=== PATIENT | male | born 1955 | race Caucasian/White ===

== ENCOUNTER → 2017-05-13 | Outpatient (CLI) | payer OTHER ==
[~2017-05-13] MED LIST: IBUP200C17 PO; MULT-65 PO; NAPR550 PO; TRAM50 PO; TRAM50TA PO; Z.0.NO CURRENT MEDS
== END ==
LOC: CPRE 12:02
PROVIDERS: ATTEND Orthopaedic Surgery Sports Medicine
DX: M16.11 Unilateral primary osteoarthritis, right hip (principal)

== ENCOUNTER 2017-05-30 05:25 | Inpatient (IN) | payer OTHER ==
[~2017-05-30] VITALS: Ht 175.3 cm; Wt 86.5 kg
[~2017-05-30 05:25] MED LIST changes: -NAPR550 PO; -TRAM50 PO; -Z.0.NO CURRENT MEDS
[2017-05-30] MEDS ORDERED: CHLORHEXIDINE GLUCONATE 4% SOLN 120 ML BTL TOPICAL SCH (06:00)
[2017-05-30] MEDS ORDERED: DEXAMETHASONE SOD PHOS 20 MG/5 ML VIAL IV SCH (06:00)
[2017-05-30] MEDS ORDERED: VANCOMYCIN 1000 MG/NS 250 ML (for <70 kg) IV SCH ×2 (06:00)
[2017-05-30] MEDS ORDERED: ceFAZolin 2 GM PREMIX 50 ML IV SCH (06:00)
[2017-05-30] MEDS ORDERED: SODIUM CHLORID 0.9% 500 ML IV PRN (06:00)
[2017-05-30] MEDS ORDERED: METOPROLOL TARTRATE 25 MG TAB PO PRN (06:00)
[2017-05-30] MEDS ORDERED: POVIDONE IODINE 7.5% SCRUB 118 ML BOTTLE TOPICAL SCH (06:00)
[2017-05-30] MEDS ORDERED: LACTATED RINGER'S 1000 ML IV PRN (06:00)
[2017-05-30] MEDS ORDERED: CHLORHEXIDINE GLUCONATE 2 % 1 PACK (2 CLOTHS) TOPICAL PRN (06:00)
[2017-05-30] MEDS ORDERED: POVIDONE IODINE 5% (ANTISEPSIS KIT) 4 APPLICATIONS EACH NARE PRN (06:00)
[2017-05-30] MEDS ORDERED: GENTAMICIN SULFATE 80 MG/2 ML VIAL ONE (06:05)
[2017-05-30] MEDS ORDERED: HYDR-3288 PO (06:52)
[2017-05-30] MEDS ORDERED: ASPI1CHW4 CHEW (06:53)
[2017-05-30] MEDS ORDERED: NALOXONE HCL 0.4 MG/ML AMP IV PUSH PRN (07:00)
[2017-05-30] MEDS ORDERED: TRANEXAMIC PERI-ARTICULAR 3,000 MG/NS 100 ML P-ARTICULR SCH ×2 (07:00)
[2017-05-30] MEDS ORDERED: TRANEXAMIC ACID IV SCH (07:00)
[2017-05-30] MEDS ORDERED: SODIUM CHLORIDE 0.9% IV SCH (07:00)
[2017-05-30] MEDS ORDERED: EXPAREL PERI-ARTICULAR INJECTION (TOTAL VOL. 60 ML) P-ARTICULR SCH ×2 (07:00)
[2017-05-30] MEDS ORDERED: ONDANSETRON HCL 4 MG/2 ML VIAL IVP PRN (07:00)
[2017-05-30] MEDS ORDERED: diphenhydrAMINE HCL 50 MG/ML VIAL IV PUSH PRN (07:00)
[2017-05-30] MEDS ORDERED: BISACODYL 10 MG SUPP RECTAL PRN (07:00)
[2017-05-30] MEDS ORDERED: MORPHINE SULFATE 4 MG/ML INJ IV PUSH PRN (07:00)
[2017-05-30] MEDS ORDERED: ZOLPIDEM TARTRATE 5 MG TAB PO PRN (07:00)
[2017-05-30] MEDS ORDERED: Post-op Orders (for Pharmacy) XX ONE (09:06)
[2017-05-30] MEDS ORDERED: DO NOT ADM ANY ANTICOAGULANT DRUGS PRN (09:06)
[2017-05-30] MEDS ORDERED: *MEPERIDINE 25 MG INJ VIAL PERIprocedural Use ONLY ONE (09:18)
--- NOTE | 2017-05-30 09:20 | RADRPT ---
EXAM DATE/TIME: 05/30/2017 07:27 [facility] COMPARISON: FLUOROSCOPY PORTABLE UP TO 1HR, May 30, 2017, 0:00. INDICATIONS : Post-op total right hip arthroplasty. MEDICAL HISTORY : None. SURGICAL HISTORY : None. ENCOUNTER: Initial ACUITY: 1 day PAIN SCORE: Non-responsive. LOCATION: Right Hip. FINDINGS: The patient is post right hip arthroplasty. Orthopedic hardware is in excellent position. The alignme nt is good. CONCLUSION: Uncomplicated right hip arthroplasty. Suhail Pool MD on May 30, 2017 at 9:16 Board Certified Radiologist. This report was verified electronically.
[2017-05-30] MEDS ORDERED: MIDAZOLAM HCL 2 MG/2 ML VIAL ONE (09:21)
[2017-05-30] MEDS: SODIUM CHLOR 0.9% 1000 ML INJ 1,000 ML IV SCH ×2 (09:30→20:00)
[2017-05-30] MEDS ORDERED: *morphine SULFATE 10 MG/ML PERIprocedure ONLY ONE (09:47)
[2017-05-30 11:00] VITALS: BP 165/83; PULSE 75; RESP 18; TEMP 95.6; O2SAT 100
[2017-05-30] MEDS ORDERED: PHENYLEPH/NS 1000 MCG/10 ML SYR IV ONE (12:00)
[2017-05-30] MEDS ORDERED: PROPOFOL 200 MG/20 ML AMP IV ONE (12:00)
[2017-05-30] MEDS ORDERED: ROCURONIUM INJ 50 MG/5 ML SYRINGE IV PUSH ONE (12:00)
[2017-05-30] MEDS ORDERED: LACTATED RINGER'S 1000 ML INJ 1,000 ML IV ONE (12:00)
[2017-05-30] MEDS ORDERED: ONDANSETRON HCL 4 MG/2 ML VIAL IV PUSH ONE (12:00)
[2017-05-30] MEDS ORDERED: LIDOCAINE HCL 1% PF 5 ML SYRINGE OTHER ONE (12:00)
--- NOTE | 2017-05-30 12:27 | RADRPT ---
EXAM DATE/TIME: 05/30/2017 11:46 [facility] COMPARISON: No previous studies available for comparison. INDICATIONS : Post operative right hip. MEDICAL HISTORY : None. SURGICAL HISTORY : None. ENCOUNTER: Initial ACUITY: 1 day PAIN SCORE: Non-responsive. LOCATION: Right hip. FINDINGS: Examination of the right hip was performed with AP Pelvis. Postoperative right total hip placement. N ormal alignment. No complications identified. Moderate to severe osteoarthritis of the left hip. CONCLUSION: 1. Postoperative right hip with normal alignment. Moderate to severe osteoarthritis left hip. Michael Carrion MD on May 30, 2017 at 12:23 Board Certified Radiologist. This report was verified electronically.
--- NOTE | 2017-05-30 12:34 | MP ---
cc: KAYLAH QURESHI M.D. DATE OF SURGERY 05/30/2017 PREOPERATIVE DIAGNOSIS Right hip osteoarthritis. POSTOPERATIVE DIAGNOSIS Right hip osteoarthritis. PROCEDURE Right total hip arthroplasty SURGEON Dr. Kaylah Qureshi PAYABLE REPRESENTATIVE Kaylah Barajas PA-C ANESTHESIA General. ESTIMATED BLOOD LOSS 200 cc. COMPLICATIONS None. IMPLANTS USED DePuy Corail size 12 Press-Fit high offset femoral stem, size 52 solid [place] Gription cup, size 36-mm highly cross-linked polyethylene neutral liner, size 36-mm ceramic head, +1.5 neck. JUSTIFICATION This patient is a 62-year-old male with history of severe osteoarthritis involving the right hip. He has severe disabling pain with standing, walking, ambulation, weightbearing activities and even severe pain at rest. He has failed greater than 3 months of nonoperative conservative to include medication therapy, injections, ambulatory assistive aids, home exercise program, activity modification. The patient is not overweight. X-rays of the right hip revealed severe end-stage osteoarthritis and [id number] joint space narrowing, subchondral sclerosis, subchondral cysts, osteophyte formation with superior subluxation. The patient was counseled as to the risks, benefits and alternatives to a total hip arthroplasty. The risks which were discussed include but are not limited to anesthesia, bleeding, infection, damage to nerves, blood vessels, pain, stiffness, fracture dislocations, leg length discrepancy, blood clots, pulmonary embolism and even . The patient's pain was severe. He favored the benefits over the risks. He did wish to proceed with surgery. PROCEDURE IN DETAIL Written consent was obtained. The patient was identified by name and taken to the operating room, placed supine on the operating room table. General anesthesia was administered as well as 2 grams of IV Ancef and 1 gram of IV vancomycin. The patient was transferred to the [place] table. The right and left feet were placed in the padded traction boots. All bony prominences and pressure points were well padded. The right hip and right lower extremity were prepped and draped using isopropyl alcohol, Hibiclens solution and Chloraprep solution. After a time-out was performed, a longitudinal incision was made over the anterolateral aspect of the right hip. The fascial layer was incised. Dissection was carried over tensor fascia fabiola, underneath the rectus femoris to allow exposure to the anterior hip capsule. A capsulotomy incision was performed. An oscillating saw was used to perform a femoral neck cut. The osteoarthritic femoral head and neck component was removed. A 10 blade scalpel was used to excise the labrum and sequential reaming began at size 47 mm. It was carried through to size 52. Subsequently, a solid [place] Gription cup was implanted in approximately 45 degrees of abduction and 10 degrees of anteversion. There was excellent purchase and fixation. After insertion of the cup, a screw hole eliminator was placed, followed by the neutral liner. The liner was impacted in place and tested for stability. Attention was then turned to the femur where the leg was externally rotated, extended and adducted. The capsule was released off the inner surface of the greater trochanter to allow for elevation and lateralization of the femur. A box-cutting osteotome was used to gain entrance into the intramedullary canal of the femur. This was followed by the canal finder and sequential broaching up to size 12. Calcar planer was used to plane the calcar. Trial head and neck combinations were evaluated and the final components implanted including the size 12 Corail high-offset, DePuy Press-Fit femoral stem. Trial head and neck combinations were evaluated and again the final 1.5 neck and 36-mm ceramic head was placed. With the current implants, the leg could achieve external rotation of 70 degrees and extension all the way to the ground without evidence of anterior instability or impingement. Soft tissue tension felt appropriate and fluoroscopic images showed appropriate implantation of components. The surgical wound was thoroughly irrigated with sterile saline pulse lavage antibiotic impregnated solution. The fascial layer was closed with #1 Vicryl suture, the subcutaneous layer with 2-0 Vicryl suture. The skin was closed with Dermabond. Sterile dressings were applied. The patient tolerated the procedure well with no intraoperative complications noted. Eric Barajas, physician marketing assistant certified, was present during the entire procedure to include patient positioning and the procedure itself. The medical necessity of a physician marketing assistant was indicated in this case due to the complexity of the procedure itself. He assisted with appropriate manipulation of the leg and also retraction of muscle, tendon, bone and neurovascular structures. He assisted with preparation of bone and also with implantation of the prosthetic replacement. MD YOHANA Sunshine/MARIA A /8:51 AM /12:15 PM
[2017-05-30] MEDS: ACETAMINOPHEN/HYDROcodone 325 MG/10 MG TAB PO PRN ×2 (12:37→22:15)
--- NOTE | 2017-05-30 14:20 | PD.CONS ---
HPI Service [facility] Hospitalists Consult Requested By Dr. Valencia Reason for Consult Postoperative medical management Primary Care Physician Isis Ramos MD Diagnoses: History of Present Illness This 68-year-old male patient with past medical history which includes osteoarthritis. Patient denies any other acute or chronic medical illnesses. Patient is status post right total hip arthroplasty today 05/30/[address] Valencia. We have been consulted for assistance in postoperative medical management. Patient at this time resting comfortably in bed with family at bedside. Offers no specific complaints. Patient specifically denies fevers chills nausea vomiting diarrhea constipation shortness of breath or chest pain. Review of Systems Constitutional: DENIES: Fatigue, Fever, Chills Respiratory: DENIES: Cough, Sputum production, Shortness of breath Cardiovascular: DENIES: Chest pain, Palpitations, Dyspnea on Exertion Gastrointestinal: DENIES: Abdominal pain, Constipation, Diarrhea, Nausea, Vomiting Neurologic: DENIES: Headache, Localized weakness, Speech Problems Psychiatric: DENIES: Anxiety, Confusion, Depression Past Family Social History Past Medical History Osteoarthritis Past Surgical History Denies prior surgical intervention Reported Medications Motrin as needed Allergies: Coded Allergies: No Known Allergies (Verified Allergy, Unknown, 05/30/17) Family History Mother at 84 with Alzheimer's dementia Father at 79 had diabetes mellitus and colon cancer Sister secondary to breast cancer Brother has diabetes Social History Patient Sachi lives at home with his works as a lawn maintenance/landscaping Occasional EtOH use Denies tobacco use now and has Occasional marijuana use possibly once a month denies other illicit drug use Physical Exam Vital Signs Vital Signs Date Time Temp Pulse Resp B/P (MAP) Pulse Ox O2 Delivery O2 Flow Rate FiO2 05/30/17 11:00 95.6 75 18 165/83 (110) 100 05/30/17 10:30 71 16 164/81 (108) 96 Room Air 05/30/17 10:00 69 21 157/75 (102) 97 Room Air 05/30/17 09:45 72 16 162/71 (101) 100 Room Air 05/30/17 09:30 77 15 159/76 (103) 100 Nasal Cannula 2 05/30/17 09:12 98.3 82 19 170/86 (114) 99 Nasal Cannula 2 05/30/17 05:58 98.8 64 18 156/86 (109) 100 Physical Exam GENERAL: This is a well-nourished, well-developed patient, in no apparent distress. SKIN: Postoperative dressing dry and intact HEAD: Atraumatic. Normocephalic. No temporal or scalp tenderness. EYES: Extraocular motions intact. No scleral icterus. No injection or drainage. CARDIOVASCULAR: Regular rate and rhythm RESPIRATORY: Clear to auscultation. Breath sounds equal bilaterally. GASTROINTESTINAL: Abdomen soft, non-tender, nondistended. MUSCULOSKELETAL: Extremities without clubbing, cyanosis, or edema. No joint tenderness, effusion, or edema noted. No calf tenderness. Negative Homans sign bilaterally. NEUROLOGICAL: Awake and alert. Motor and sensory grossly within normal limits. Five out of 5 muscle strength in all muscle groups with the exception of right lower extremity which is postop. Normal speech. Imaging Last Impressions Hip and Pelvis X-Ray 05/30/17 0000 Signed Impressions: Service Date/Time: Tuesday, May 30, 2017 11:46 - CONCLUSION: 1. Postoperative right hip with normal alignment. Moderate to severe osteoarthritis left hip. Michael Carrion MD Hip X-Ray 05/30/17 0000 Signed Impressions: Service Date/Time: Tuesday, May 30, 2017 07:27 - CONCLUSION: Uncomplicated right hip arthroplasty. Suhail Pool MD Assessment and Plan Problem List: (1) Primary localized osteoarthrosis, pelvic region and thigh ICD Codes: M16.10 - Unilateral primary osteoarthritis, unspecified hip Plan: Patient is status post right total hip arthroplasty 05/30/[address] Erik Leal as needed for pain Colace twice a day to prevent constipation Intraoperative antibiotics per orthopedic surgery Physical therapy Lupis Luz May 30, 2017 14:19
--- NOTE | 2017-05-30 14:49 | HHI.DCPOC ---
Discharge Care Plan Diagnosis: (1) Primary localized osteoarthrosis, pelvic region and thigh Your Health Problems Are: Difficulty with ADL Goals to Promote Your Health * To prevent worsening of your condition and complications * To maintain your health at the optimal level Directions to Meet Your Goals Take your medications as prescribed Follow your dietary instruction Follow activity as directed Keep your appointments as scheduled Take your immunizations and boosters as scheduled If your symptoms worsen call your PCP, if no PCP go to Urgent Care Center or Emergency Room Smoking is Dangerous to Your Health. Avoid second hand smoke Call the 24-hour hour crisis hotline for domestic abuse at Christopher Barajas May 30, 2017 14:49
--- NOTE | 2017-05-30 14:50 | HHI.FF ---
Face to Face Verification Diagnosis: (1) Primary localized osteoarthrosis, pelvic region and thigh Physical Therapy Gait training, Safety evaluation, Transfer training, bed to chair Hip: Total hip, Protocol: Right Right LE Weight Bearing: WB as tolerated Nursing RN: 3 days/week x 2 weeks Nursing: Cortes teaching, Dressing changes Dressing Changes: Daily dressing change Additional Instructions ok to maintain dressing unless saturated. I have seen patient Ulisses Hope on 05/30/17. My clinical findings support the need for the requested home health care services because: Limited ability to care for self High risk of falls I certify that my clinical findings support that this patient is homebound because: Post-op weakness Unsteady gait/balance Christopher Barajas May 30, 2017 14:50
[2017-05-30 16:00] VITALS: BP 164/84; PULSE 78; RESP 18; TEMP 97.2; O2SAT 97
[2017-05-30 21:29] VITALS: BP 187/92; PULSE 91; RESP 18; TEMP 98.7; O2SAT 99
[2017-05-30 23:25] VITALS: BP 141/69; PULSE 86; RESP 18; TEMP 98.8; O2SAT 97
[2017-05-31 04:57] VITALS: BP 163/78; PULSE 84; RESP 18; TEMP 96.9; O2SAT 99
[2017-05-31] MEDS: SODIUM CHLOR 0.9% 1000 ML INJ 1,000 ML IV SCH (05:28)
[2017-05-31] MEDS: ACETAMINOPHEN/HYDROcodone 325 MG/10 MG TAB PO PRN ×2 (06:20→12:11)
[2017-05-31 07:13] LABS: HEMATOCRIT 37.8 % (39.0-51.0); HEMOGLOBIN 13.1 GM/DL (13.0-17.0); MEAN CELL VOLUME 88.4 FL (80.0-100.0); MEAN CORPUSCULAR HEMOGLOBIN 30.6 PG (27.0-34.0); MEAN CORPUSCULAR HGB CONC 34.6 % (32.0-36.0); MEAN PLATELET VOLUME 8.8 FL (7.0-11.0); PLATELET COUNT 199 TH/MM3 (150-450); RED BLOOD COUNT 4.28 MIL/MM3 (4.50-5.90); RED CELL DISTRIBUTION WIDTH 13.5 % (11.6-17.2); WHITE BLOOD COUNT 14.2 TH/MM3 (4.0-11.0)
[2017-05-31 07:38] LABS: BICARBONATE 25.7 MEQ/L (21.0-32.0); CALCIUM 8.1 MG/DL (8.5-10.1); CREATININE 0.74 MG/DL (0.60-1.30)
[2017-05-31 08:00] VITALS: BP 162/82; PULSE 80; RESP 18; TEMP 97.9; O2SAT 99
[2017-05-31] MEDS ORDERED: ENOXAPARIN SODIUM 40 MG/0.4 ML SYRINGE SQ SCH (08:00)
--- NOTE | 2017-05-31 08:45 | PD.ORT.PN ---
Subjective Post Op Day #: 1 Subjective Remarks pain controlled. doing well. walked yesterday in hallway. Objective Vitals Vital Signs Date Time Temp Pulse Resp B/P (MAP) Pulse Ox O2 Delivery O2 Flow Rate FiO2 05/31/17 08:35 18 05/31/17 08:00 97.9 80 18 162/82 (108) 99 05/31/17 04:57 96.9 84 18 163/78 (106) 99 05/30/17 23:25 98.8 86 18 141/69 (93) 97 05/30/17 21:29 98.7 91 18 187/92 (123) 99 05/30/17 16:00 97.2 78 18 164/84 (110) 97 05/30/17 11:00 95.6 75 18 165/83 (110) 100 05/30/17 10:30 71 16 164/81 (108) 96 Room Air 05/30/17 10:00 69 21 157/75 (102) 97 Room Air 05/30/17 09:45 72 16 162/71 (101) 100 Room Air 05/30/17 09:30 77 15 159/76 (103) 100 Nasal Cannula 2 05/30/17 09:12 98.3 82 19 170/86 (114) 99 Nasal Cannula 2 I/O 05/30/17 05/30/17 05/30/17 05/31/17 05/31/17 05/31/17 07:00 15:00 23:00 07:00 15:00 23:00 Intake Total 1680 ml 480 ml 580 ml Output Total 750 ml 225 ml Balance 930 ml 255 ml 580 ml Intake Oral 480 ml 480 ml 480 ml IV Total 1200 ml 100 ml Output Urine Total 550 ml 225 ml Estimated Blood Loss 200 ml # Voids 2 3 # Bowel Movements 0 0 0 Result Diagram: 05/31/17 0558 05/31/17 0558 Objective Remarks in chair, nad, brother in room dressing c/d/i thigh soft neg homans nvi Assessment & Plan Ortho Post Op Day #: 1 Problem List: Assessment and Plan s/p R CORRINA wbat ok to maintain dressing unless saturated lovenox, d/c on [id number] rx in chart f/up 2 weeks d/c planing home with [facility] and pt - cleared today Christopher Barajas May 31, 2017 08:45
[2017-05-31 11:46] VITALS: BP 162/80; PULSE 82; RESP 17; TEMP 98.5; O2SAT 98
[2017-05-31 13:11] VITALS: RESP 18
[2017-05-31] MEDS ORDERED: MULTIVITAMINS/MINERALS THERAPEUTIC TAB PO SCH (21:00)
[2017-05-31] MEDS ORDERED: DOCUSATE SODIUM 100 MG CAP PO SCH (21:00)
--- NOTE | 2017-06-02 10:25 | MD ---
cc: KAYLAH QURESHI M.D. ADMISSION DATE: 05/30/2017 DISCHARGE DATE: 05/31/2017 ADMISSION DIAGNOSIS Severe degenerative osteoarthritis right hip. DISCHARGE DIAGNOSIS Severe degenerative osteoarthritis right hip. HISTORY OF PRESENT ILLNESS Mr. Hope was a 62-year-old male who presented to the [facility] for evaluation by Dr. Kaylah Qureshi regarding progressive and severe right hip pain. The patient states the pain is inhibiting his ability to work. He does work as a mails supervisor. He notes it is aggravated by weightbearing activities and he has no alleviating factors at this point in time, although he has tried medications, assistive devices, physical therapy and home exercises without relief of symptoms. He does have x-ray evidence of severe degenerative osteoarthritis of the right hip. While in the office, the patient was counseled on the diagnosis and treatment options. The risks, benefits, and indications were all discussed. The patient did elect to proceed with surgical intervention to include a right total hip arthroplasty. Date of surgery 05/30/2017, right total hip arthroplasty anterior approach. Postop after surgery, the patient admitted to [facility] where he received appropriate management, pain control, DVT prophylaxis, as well as physical therapy. Discharge. Once being discharged from the hospital, the patient is cleared to go home where he will received home health care and home physical therapy. He is in stable condition. He may weight-bear as tolerated. He has been instructed on appropriate wound care management. Patient has been provided prescriptions for pain control as well as DVT prophylaxis and medication. He has also been provided a follow-up appointment in approximately two weeks from the date of surgery. The patient has asked appropriate questions which have been answered. The patient has been discharged. Thank you. Dictated by Kaylah Barajas PA-C MD YOHANA Sunshine/MARGE /7:51 AM /10:13 AM
== END 2017-05-31 13:58 | disposition home health service (06) | DRG 470 ==
LOC: HSDI 05:25 → N06B 10:58
PROVIDERS: ADMIT Orthopaedic Surgery Sports Medicine; ATTEND Orthopaedic Surgery Sports Medicine
PROC: 0SR904A Replacement of Right Hip Joint with Ceramic on Polyethylene Synthetic Substitute, Uncemented, Open Approach (ICD-10-PCS; principal; 2017-05-30 06:48)
DX: M16.11 Unilateral primary osteoarthritis, right hip (principal); F12.90 Cannabis use, unspecified, uncomplicated
CPT/HCPCS: 73502; 76000; 80048; 85027; 86850; 86900; 86901; 94150; C1776; C9290; J0690; J1100; J1580; J1650; J2175; J2250; J2270; J2370; J2405; J3010; J3370; J7030; J7050; J7120

== ENCOUNTER 2018-03-27 05:30 | Inpatient (IN) ==
[2018-03-27] MEDS ORDERED: Dexamethasone Inj 20 MG/5 ML Vial IV.PUSH SCH (05:51)
[2018-03-27] MEDS ORDERED: Sodium Chlor 0.9% Inj 40 ML, Bupivacaine Liposo PF 1.3% Inj 20 ML P-ARTICULR SCH ×2 (05:51)
[2018-03-27] MEDS ORDERED: Chlorhexidine 4% Topical 120 APPLIC/120 ML Bottle TOPICAL SCH (06:00)
[2018-03-27] MEDS ORDERED: Vancomycin Inj 1,000 MG in Sodium Chlor 0.9% Inj 250 ML IV.SIG SCH (06:00)
[2018-03-27] MEDS ORDERED: Tranexamic Acid Inj 1,300 MG in Sodium Chlor 0.9% Inj 100 ML IV.SIG SCH (06:00)
[2018-03-27] MEDS ORDERED: Metoprolol Tartrate 25 MG Tablet PO ONE (06:00)
[2018-03-27] MEDS ORDERED: Sodium Chlor 0.9% Inj 500 ML IV.CONT ONE (06:00)
[2018-03-27] MEDS ORDERED: Chlorhexidine Gluconate 2% 1 Pack (2 Cloths) TOPICAL ONE (06:00)
[2018-03-27] MEDS ORDERED: ceFAZolin 2 GM Premix Inj 2 GM/50 ML PIGGYBACK IV.SIG SCH (06:00)
[2018-03-27] MEDS ORDERED: Tranexamic Acid Inj 3,000 MG in Sodium Chlor 0.9% Inj 100 ML P-ARTICULR SCH (06:00)
[2018-03-27] MEDS ORDERED: Bisacodyl 10 MG Supp RECTAL PRN (06:53)
[2018-03-27] MEDS ORDERED: Zolpidem Tartrate 5 MG Tablet PO PRN (06:53)
[2018-03-27] MEDS ORDERED: HYDROmorphone PF Inj 1 MG/ML Ampul IV.PUSH PRN (06:53)
[2018-03-27] MEDS ORDERED: Post-op Orders (for Pharmacy) OTHER STA (06:53)
--- NOTE | 2018-03-27 08:28 | P.OP ---
Procedure: PREOPERATIVE DIAGNOSIS: Left hip osteoarthritis. POSTOPERATIVE DIAGNOSIS: Left hip osteoarthritis. PROCEDURE PERFORMED: Left total hip arthroplasty. SURGEON: Dr. Christopher Delcid M.D. PRODUCT STEWARD: SEBASTIÁN Bob. ANESTHESIA: General. ESTIMATED BLOOD LOSS: 250 mL. COMPLICATIONS: None. IMPLANTS USED: Depuy Corail femoral stem 14 standard offset [place] Gripsion Cup 52 Poly insert liner neutral [36 by 52] femoral head [36 ceramic) neck length [8.5] JUSTIFICATION: This patient presents to the undersigned at the orthopedic clinic with chief complaints of severe left hip pain. The pain is severe and constant and interferes with activities of daily living. The patient has failed greater than 3 months of nonoperative conservative treatment to include analgesic and nonsteroidal anti-inflammatory medications, physical therapy, cortisone injections, activity modification, weight loss, home exercise program, and use of ambulatory assistive aids. X-rays of left hip reveal severe osteoarthritis with [id number]-[id number] joint space narrowing, subchondral sclerosis, subchondral cysts, osteophyte formation with subluxation. The patient was counseled on risks, benefits, and alternatives to a total hip arthroplasty. The risks were discussed, which include, but are not limited to, anesthesia, bleeding, infection, damage to nerves and blood vessels , pain, stiffness, fracture, dislocations, leg length discrepancy, failure of components, blood clots, pulmonary embolus, and even . The patient favored the benefits over the risks, did wish to proceed with surgery. PROCEDURE IN DETAIL: Written consent was obtained. The patient was identified by name, taken to the operating room and placed supine on the operating table. General anesthesia was administered. The patient was preoperative IV antibiotics. The patient right and left feet were placed in the padded traction boots. The left hip and lower extremity was then prepped and draped using isopropyl alcohol, Hibiclens solution and ChloraPrep solution. After a timeout was performed, a longitudinal incision was made over the anterior aspect of the left hip. The fascia fabiola was incised. Dissection was carried over the tensor fascia fabiola beneath the rectus femoris. After exposure of the anterior capsule, a capsulotomy incision was performed. An oscillating saw was used to perform a femoral neck cut. The Osteoarthritic femoral head and neck was removed. A 10 blade scalpel was used to excise the labrum. Sequential reaming of the acetabulum was performed. Subsequently a porous-coated titanium acetabular cup was implanted in a press manner in approximately 45 degrees of abduction and 10 degrees of anteversion. There was good purchase and fixation after insertion of the acetabular cup. The cup was tested manually and noted to have excellent stability and fixation. A neutral highly cross-linked polyethylene liner was placed within the cup. The liner was impacted in place for fixation and tested for stability. Attention was turned to the femur where the leg was externally rotated, extended and adducted. The capsule was released off the undersurface of the greater trochanter to allow for elevation and lateralization of the femur. A box cutting osteotome was used to gain entrance into the intramedullary canal of the femur. This was followed by a canal finder and sequential broaching. A calcar planer to plane the calcar. A trial head and neck combination were evaluated prior to implantation of final components. With the final implants placed, the leg could achieve external rotation of 70 degrees and extension to the the ground without evidence of anterior instability or impingement. Soft tissue tension felt appropriate. Fluoroscopic imaging showed appropriate implantation of components. The Surgical wound was thoroughly irrigated with sterile saline Pulse Lavage antibiotic impregnated solution. The fascial layer was closed with #1 Vicryl suture, subcutaneous layer with 2-0 Vicryl sutures. The skin was closed with Dermabond. Sterile dressing applied. No intraoperative complications noted. Eric Barajas, Physician Bindery Machine Operator, Certified was present for the entire procedure to include the patient position, the procedure itself. The medical necessity of a physician plumber assistant was indicated in this case due to the complexity of the procedure. He assisted with position of the patient along with the ear itself. During the procedure he assisted with exposure and the retraction of muscle, tendon, bone, and neurovascular vessel structures. He assisted with the preparation of bone and also implantation of the prosthetic replacement. There was a surgical attendant in the room that assisted with management of instruments, but was not available to assist with the surgery itself. Christopher Valencia MD Surgeon: Christopher Valencia MD
[2018-03-27] MEDS ORDERED: *morphine SULFATE 4 MG/ML PERIprocedure ONLY ONE ×3 (08:53→09:22)
[2018-03-27] MEDS ORDERED: fentaNYL Citrate Inj 100 MCG/2 ML Ampul ONE (08:57)
[2018-03-27] MEDS ORDERED: HYDROmorphone PF Inj 0.5 MG/0.5 ML Syringe ONE (09:34)
--- NOTE | 2018-03-27 09:42 | XR ---
EXAM DATE: 03/27/2018 9:31 AM EST AGE/SEX: 62 years / Male INDICATIONS: Post operative left hip. CLINICAL DATA: This is the patient's initial encounter. Patient reports that signs and symptoms have been present for 1 day and indicates a pain score of 0/10. MEDICAL/SURGICAL HISTORY: None. . Total right hip. COMPARISON: [facility] [place] RIGHT (AP&LAT 2/3VWS) W AP PELVIS, 05/30/2017. . FINDINGS: Bilateral hip replacements are noted with prostheses in good position. No acute fracture or dislocati on is noted. Degenerative changes are noted involving the lower lumbar spine. CONCLUSION: 1. No acute fracture or dislocation. 2. Degenerative changes involving the lower lumbar spine. Electronically signed by: Storm Mcnamara MD Board Certified Radiologist 03/27/2018 9:40 AM EST
[2018-03-27] MEDS: ceFAZolin 2 GM Premix Inj 2 GM/50 ML PIGGYBACK IV.SIG SCH ×2 (14:43→18:00)
[2018-03-27] MEDS: Senna/Docusate Sodium 8.6/50 MG Tablet PO SCH ×2 (15:26→20:07)
[2018-03-27] MEDS: Multivitamin/Minerals Therapeutic Tablet PO SCH ×2 (15:26→20:07)
--- NOTE | 2018-03-27 17:15 | XR ---
EXAM DATE: 03/27/2018 10:48 AM EST AGE/SEX: 62 years / Male INDICATIONS: Left total hip arthroplasty. CLINICAL DATA: This is the patient's initial encounter. Patient reports that signs and symptoms have been present for 1 day and indicates a pain score of Nonresponsive. MEDICAL/SURGICAL HISTORY: Non-responsive. Non-responsive. COMPARISON: No prior exams available for comparison. CONCLUSION: Fluoroscopic images during left hip arthroplasty. Electronically signed by: Facundo Faustin MD Board Certified Radiologist 03/27/2018 5:14 PM EST
[2018-03-28] MEDS: ceFAZolin 2 GM Premix Inj 2 GM/50 ML PIGGYBACK IV.SIG SCH (00:40)
[2018-03-28 07:02] LABS: Hematocrit 37.4 % (39.0-51.0); Hemoglobin 12.5 gm/dL (13.0-17.0)
--- NOTE | 2018-03-28 08:13 | P.PNOP ---
Subjective Interval history: doing well. Physical Exam Vital signs: Vital Signs 03/27/18 08:48 03/27/18 09:00 03/27/18 09:15 Temperature 96.5 F L Pulse Rate 67 61 68 Respiratory Rate 22 16 18 Blood Pressure 163/103 H 143/68 H 180/86 H Pulse Oximetry 100 100 100 03/27/18 09:27 03/27/18 09:30 03/27/18 09:45 Temperature Pulse Rate 61 65 62 Respiratory Rate 13 14 15 Blood Pressure 173/82 H 170/82 H 151/76 H Pulse Oximetry 100 100 100 03/27/18 10:00 03/27/18 11:00 03/27/18 15:57 Temperature 97.8 F 98.6 F 98.2 F Pulse Rate 66 76 64 Respiratory Rate 16 14 20 Blood Pressure 144/77 H 160/80 H 156/76 H Pulse Oximetry 98 97 97 03/27/18 19:55 03/27/18 20:00 03/27/18 21:11 Temperature 98.1 F Pulse Rate 68 Respiratory Rate 18 18 18 Blood Pressure 171/80 H Pulse Oximetry 98 03/28/18 00:00 03/28/18 02:50 03/28/18 04:00 Temperature 97.8 F 97.8 F 98.9 F Pulse Rate 67 73 66 Respiratory Rate 18 18 Blood Pressure 176/85 H 155/76 H 156/76 H Pulse Oximetry 98 99 99 03/28/18 06:49 Temperature Pulse Rate Respiratory Rate 18 Blood Pressure Pulse Oximetry Intake & Output 03/27/18 03/28/18 03/28/18 18:59 06:59 18:59 Intake Total 1705 / 1705 599 / 599 Output Total 1000 / 1000 450 / 450 Balance 705 / 705 149 / 149 Weight 86.6 kg 86.1 kg Intake: IV 528 / 528 100 / 100 LR 1000 mL Inj 1,000 ML @ 80 65 / 65 mls/hr IV.CONT .[id number] S[facility] Rx# :[id number] Cyklokapron Inj 1,300 MG In NS 113 / 113 Inj 100 ML @ 200 mls/hr IV.SIG ONCE [facility] Rx#:[id number] Vancomycin Inj 1,000 MG In NS 250 / 250 Inj 250 ML @ 250 mls/hr 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 Hip X-Ray 03/27/18 06:52 CONCLUSION: 1. No acute fracture or dislocation. 2. Degenerative changes involving the lower lumbar spine. Assessment and Plan - Ortho Post Op Day # 1 - Assessment and Plan s/p L CORRINA wbat maintain dressing asa 81 d/c planning home with [facility] and pt cleared today f/up dr. chapin 2 weeks
--- NOTE | 2018-03-28 08:16 | P.DCO ---
- Physical Therapy Physical Therapy: Gait training, Safety evaluation, Transfer training, bed to chair Hip: Total hip, Protocol: Left Left Lower Extremity Weight Bearing: Weight bearing as tolerated - Nursing RN days per week: 1 Nursing: Dressing changes Dressing changes: Daily dressing change - Certification Need for Home Health services: I have seen patient Ulisses Hope on 03/28/18. My clinical findings support the need for the requested home health care services because: Need for Home Health Services: Limited ability to care for self, High risk of falls Homebound Certification: I certify that my clinical findings support that this patient is homebound because: Homebound Certification: Post-op weakness, Unsteady gait/balance
[2018-03-28] MEDS: Multivitamin/Minerals Therapeutic Tablet PO SCH (09:27)
[2018-03-28] MEDS: Senna/Docusate Sodium 8.6/50 MG Tablet PO SCH (09:27)
--- NOTE | 2018-03-30 10:30 | MD ---
cc: Christopher Valencia MD DATE OF DISCHARGE: 03/28/2018 ADMITTING DIAGNOSIS: Severe degenerative osteoarthritis, left hip. DISCHARGE DIAGNOSIS: Severe degenerative osteoarthritis, left hip. HISTORY OF PRESENT ILLNESS: Mr. Hope is a 62-year-old male who is a patient of Dr[facility]. Currently, he is being treated for severe and progressive left hip pain. The patient has a severe aching sensation with weightbearing activities. He has no alleviating factors, although he has tried medications, assistive devices, physical therapy, and home exercise program. The patient is not overweight. The patient has x-ray evidence of severe degenerative osteoarthritis of the left hip. He has a history of a well-functioning right total hip arthroplasty. While in the office, the patient was counseled on his diagnosis and treatment options. Risks, benefits, and indications were all discussed. The patient did elect to proceed with surgical intervention to include a left total hip arthroplasty. DATE OF SURGERY: 03/27/2018. PROCEDURE: Left total hip arthroplasty, anterior approach. POSTOPERATIVE: After surgery, the patient was admitted to [facility] where he received appropriate medical management, pain control, DVT prophylaxis, as well as physical therapy. DISCHARGE: Once being discharged from the hospital, the patient has been cleared to go home with home health care and home physical therapies in stable condition. He may weight bear as tolerated. He has been instructed on wound care management. The patient has been provided prescriptions for pain control and DVT prophylaxis medication. He has also been provided a followup appointment approximately 2 weeks from date of surgery. The patient has asked appropriate questions which have been answered. The patient is cleared for discharge. Dictated by SANTIAGO Bob Christopher Valencia MD JWM/ts , 02:08 PM , 02:14 PM
== END 2018-03-28 13:10 | disposition home health service (06) ==
LOC: HSDI 05:30 → N06 10:13
PROVIDERS: ADMIT Orthopaedic Surgery Sports Medicine; ATTEND Orthopaedic Surgery Sports Medicine